=== PATIENT | female | born 1965 | race Caucasian/White ===

== ENCOUNTER 2022-10-03 14:34 | Emergency (ER) | payer BC, SELFPAY ==
[2022-10-03 14:42] VITALS: BP 203/104; PULSE 82; O2SAT 99
[2022-10-03 14:43] VITALS: PULSE 77; O2SAT 100
[2022-10-03 14:44] VITALS: BP 200/98
[2022-10-03 14:46] VITALS: BP 200/98; PULSE 96; RESP 18; TEMP 36.8; O2SAT 98; BMI 24.2
--- NOTE | 2022-10-03 15:55 | ED.SKABFB ---
HPI - Skin/Abscess/Foreign Bdy <BRIAN Freire - Last Filed: 10/03/22 16:01> General Chief complaint: Skin/Abscess/Foreign Body Stated complaint: nasal redness sesitive tender swollen Time Seen by Provider: 10/03/22 14:41 Source: patient Mode of arrival: Ambulatory Limitations: no limitations History of Present Illness HPI narrative: 56-year-old female, never smoker, presents to the emergency department with worsening redness, warmth and swelling of her nasal bridge x2 days. Patient states that she had a similar symptoms several years back that required IV antibiotics for MRSA. Since the redness and swelling worsened over last 24 hours, and that her [facility] is not open on the weekends, patient came to the emergency department for evaluation and treatment. Patient denies any vision changes, orbital pain, etc.. Related Data Home Medications Medication Instructions Recorded Confirmed ASCORBIC ACID (Vitamin C) 1,000 mg PO PRN ##0 09/25/11 Previous Rx's Medication Instructions Recorded valacyclovir 1 gram tablet 0 PO TID #21 tabs 12/08/16 (Valtrex) amoxicillin 875 mg tablet 875 mg PO BID Cellulitis 7 days 10/03/22 #14 tabs doxycycline monohydrate 100 mg 100 mg PO BID Cellulitis 7 days 10/03/22 capsule #14 caps Allergies Allergy/AdvReac Type Severity Reaction Status Date / Time Sulfa (Sulfonamide Allergy Unknown Verified 10/03/22 14:49 Antibiotics) [SULFA (SULFONAMIDE ANTIBIOTICS)] INGREDIENT: NKDA - NO KNOWN Allergy Unknown Uncoded 10/13/17 12:02 DRUG ALLERGIES Review of Systems <BRIAN Freire - Last Filed: 10/03/22 16:01> Review of Systems Narrative: Narrative: See HPI. GENERAL: Denies chills, fatigue, fever, sweats. HEENT: Denies sinus pain, ear pain, sore throat, difficulty swallowing, dizziness. RESPIRATORY: Denies dyspnea, cough, wheezing, sputum. CARDIOVASCULAR: Denies chest pain, palpitations, edema. GASTROINTESTINAL: Denies nausea, vomiting, abdominal pain, diarrhea, constipation. : Denies dysuria, frequency, incontinence, hematuria, urinary retention, flank pain. MSK: Denies weakness, joint pain, or bony pain. SKIN: Denies rash, or pruritis. Endorses redness, warmth and swelling of bridge of nose NEUROLOGIC: Denies weakness, dizziness, headache, numbness, confusion. Patient History <BRIAN Freire - Last Filed: 10/03/22 16:01> Social History Smoking Status: Never smoker Smoking Status: Never smoker alcohol intake frequency: 0-2 drinks per day Substance Use Type: does not use Exam <BRIAN Freire - Last Filed: 10/03/22 16:01> Narrative Exam Narrative: Exam Narrative: GENERAL: This is a well-nourished, well-developed patient, in no acute distress. HEAD: Atraumatic. Normocephalic. EYES: Pupils equal round and reactive. Extraocular motions intact. No scleral icterus, injection or drainage. ENT: Nose without bleeding, purulent drainage. Throat without erythema, tonsillar hypertrophy or exudate. Uvula midline. Airway patent. TMs and canals clear. No sinus tenderness. NECK: Trachea midline. No JVD or lymphadenopathy. Nontender. CARDIOVASCULAR: Regular rate and rhythm without murmurs, peripheral pulses intact, cap refill <2 sec. Initial elevated blood pressure reading was retaken at discharge and within acceptable limits. RESPIRATORY: Breath sounds equal and clear bilaterally. No wheezes, rales, or rhonchi. No cough. No increased respiratory effort. No accessory muscle use. GASTROINTESTINAL: Abdomen soft, non-tender, nondistended without guarding or rebound. No suprapubic pain. MSK: Moves all extremities. Normal range of motion, no clubbing or edema. Neurovascularly intact. NEURO: A&O x 3. SKIN: Warm, dry, no rashes or lesions noted. Bridge of nose is painful, red, warm and swollen. No orbital pain, fluctuance, discharge or red streaking noted. Initial Vital Signs Initial Vital Signs: Vital Signs Pulse Rate 82 10/03/22 14:42 Blood Pressure 203/104 H 10/03/22 14:42 Pulse Oximetry 99 10/03/22 14:42 Reviewed <Gricelda Boston DO - Last Filed: 10/06/22 07:00> Initial Vital Signs Initial Vital Signs: Vital Signs Pulse Rate 82 10/03/22 14:42 Blood Pressure 203/104 H 10/03/22 14:42 Pulse Oximetry 99 10/03/22 14:42 Course <BRIAN Freire - Last Filed: 10/03/22 16:01> Vital Signs Vital signs: Vital Signs - 8 hr 10/03/22 14:46 Temperature 98.2 F Pulse Rate 96 H Respiratory Rate 18 Blood Pressure 200/98 H Pulse Oximetry 98 Oxygen Delivery Method Room Air <Gricelda DO Ludy - Last Filed: 10/06/22 07:00> Vital Signs Vital signs: Vital Signs - 8 hr 10/03/22 14:46 Temperature 98.2 F Pulse Rate 96 H Respiratory Rate 18 Blood Pressure 200/98 H Pulse Oximetry 98 Oxygen Delivery Method Room Air MDM - Skin/Abscess/Foreign Bdy <BRIAN Freire - Last Filed: 10/03/22 16:01> Differential Diagnosis Differential diagnosis: Likely abscess of skin or subcutaneous tissue and cellulitis MDM Narrative Medical decision making narrative: 56-year-old female, with history of MRSA, presents to the emergency department with redness and swelling of bridge of nose. Assessment was consistent with cellulitis. Due to the history of MRSA, per [employer], will treat with amoxicillin and doxycycline (patient has a sulfa allergy). Strict instructions to follow up with family doctor next week to ensure symptoms are improving. Discussed return precautions with patient, who verbalized understanding and was agreeable with course of action. Discharge Plan Departure Patient Disposition: Home Clinical Impression: Cellulitis Instructions: DI for Cellulitis -- Adult Activity Restrictions/Additional Instructions: *You have been diagnosed with cellulitis of your nasal bridge. Since you have had MRSA in the past, we will treat you with doxycycline and amoxicillin for 7 days. Please follow-up with your family doctor by the end of the week to ensure your symptoms are improving. For worsening symptoms after 72 hours of antibiotic therapy, please follow-up with your family doctor or feel free to return to the emergency department. *What to do: *Please continue to take your regular medications as directed. [x ] New medication prescriptions sent to your pharmacy: [[facility]] [ ] New medication written as a paper prescription [ ] No new medications given *Please follow up with your primary care provider in 2-3 days, call for an appointment. Let them know you were seen in the Emergency Department and that we ask that you be seen in follow up. We will electronically transmit a record of today's note if your PCP is in our system *If you do not have a primary care provider please contact the [facility] Resource line at [phone]. They will ask some questions about your medical history and help get you set up with a doctor in the community. ? Return to ER if you should have any new, worsening or concerning symptoms, such as worsening pain, severe headache, confusion, chest pain, difficulty breathing, fever greater than 101 F, shaking chills, persistent vomiting to the point that you cannot drink fluids, or other new or worsening symptoms. Prescriptions: New doxycycline monohydrate 100 mg capsule 100 mg PO BID 7 Days Qty: 14 0RF amoxicillin 875 mg tablet 875 mg PO BID 7 Days Qty: 14 0RF No Action ASCORBIC ACID (Vitamin C) 1,000 mg PO PRN Qty: 0 valacyclovir [Valtrex] 1,000 MG tablet 0 PO TID Qty: 21 0RF Referrals: Bina Demarco ARNP [Primary Care Provider] - Stand Alone Forms: Patient Portal/API <Gricelda Boston DO - Last Filed: 10/06/22 07:00> Cosign ED Attending Claytonature Attestation: I was immediately available in the department for consultation. Documentation has been reviewed.
[2022-10-03 15:58] VITALS: BP 164/97; PULSE 67; RESP 18; O2SAT 99
== END 2022-10-03 16:07 | disposition home or self-care (01) ==
PROVIDERS: Emergency Provider Registered Nurse; Family Provider Nurse Practitioner; PCP Nurse Practitioner
DX: L03.211 Cellulitis of face (principal)
CPT/HCPCS: 99281